=== PATIENT | female | born 1960 | race Caucasian/White ===

== ENCOUNTER 2017-10-30 14:58 | Inpatient (IN) | payer MEDICARE, OTHER ==
[~2017-10-30] VITALS: Ht 170.2 cm; Wt 79.4 kg
[2017-10-30 16:40] VITALS: BP 101/59
[2017-10-30] MEDS ORDERED: ACETAMINOPHEN325 M1 ORAL (17:25)
[2017-10-30] MEDS ORDERED: BISACODYL10 M1 RC (17:49)
[2017-10-30] MEDS ORDERED: TEMAZEPAM7.5 MG ORAL (17:49)
[2017-10-30] MEDS ORDERED: DIVALPROEX SOD500 M2 PO (17:49)
[2017-10-30] MEDS ORDERED: LIPITOR20 MG ORAL (17:49)
[2017-10-30] MEDS ORDERED: MOM30 ML ORAL (17:49)
[2017-10-30] MEDS ORDERED: SEROQUEL200 MG ORAL (17:49)
[2017-10-30] MEDS ORDERED: ASPIRIN-LOW81 MG ORAL (17:49)
[2017-10-30] MEDS ORDERED: MAALOX ADVANCE770 ML PO (17:49)
[2017-10-30] MEDS ORDERED: Milk of Magnesia 30ml Ud ORAL PRN (19:15)
[2017-10-30] MEDS ORDERED: Mylanta II UD 30ml ORAL SCH (19:15)
[2017-10-30 20:22] LABS: MEAN CORPUSCULAR HEMOGLOBIN 32.9 PG (27.0-31.0); MEAN CORPUSCULAR HGB CONC 32.2 G/DL (32.0-36.0); MEAN CORPUSCULAR VOLUME 102 FL (80-99); MEAN PLATELET VOLUME 6.1 FL (6.5-10.1); PLATELET COUNT 205 K/UL (150-450); RED BLOOD COUNT 3.83 M/UL (4.20-5.40); RED CELL DISTRIBUTION WIDTH 12.2 % (11.6-14.8); WHITE BLOOD COUNT 8.4 K/UL (4.8-10.8)
[2017-10-30 20:30] LABS: ANION GAP 4 mmol/L (5-15); CARBON DIOXIDE 30 MMOL/L (21-32); CHLORIDE 106 MMOL/L (98-107); CREATININE 0.8 MG/DL (0.55-1.30); GLOMERULAR FILTRATION RATE > 60 mL/min (>60); POTASSIUM 4.2 MMOL/L (3.5-5.1); SODIUM 139 MMOL/L (136-145)
[2017-10-30] MEDS: QUEtiapine 200mg tab ORAL SCH (20:51)
[2017-10-30] MEDS: Depakote ER 500mg tab ORAL SCH (20:51)
[2017-10-30 21:00] VITALS: BP 104/68
[2017-10-30 21:13] LABS: BAND NEUTROPHILS % (MANUAL) 0 % (0-8); BASOPHILS % (MANUAL) 1 % (0-2); EOSINOPHILS % (MANUAL) 1 % (0-3); LYMPHOCYTES % (MANUAL) 71 % (20-45); NEUTROPHILS % (MANUAL) 20 % (45-75); PLATELET ESTIMATE ADEQUATE; TOTAL CELLS COUNTED 100
[2017-10-30 21:14] LABS: MACROCYTES 2+; POLYCHROMASIA 1+
[2017-10-30 21:15] LABS: PLATELET MORPHOLOGY NORMAL; REACTIVE LYMPHOCYTES 1+
[2017-10-31 04:00] VITALS: BP 113/64
[2017-10-31] MEDS: QUEtiapine 200mg tab ORAL SCH ×4 (08:15→17:22)
[2017-10-31] MEDS: Depakote ER 500mg tab ORAL SCH ×4 (08:15→17:22)
[2017-10-31 08:16] VITALS: BP 113/66
[2017-10-31] MEDS: Aspirin EC 81mg tab ORAL SCH ×2 (08:16→08:23)
[2017-10-31 11:26] VITALS: BP 116/65
[2017-10-31 14:54] LABS: APPEARANCE,URINE SLIGHTLY CLOUDY; KETONES,URINE NEGATIVE (NEGATIVE); LEUKOCYTE ESTERASE ,URINE 3+ (NEGATIVE); NITRITE,URINE NEGATIVE (NEGATIVE); PH,URINE 6.5 (4.5-8.0); PROTEIN,URINE NEGATIVE (NEGATIVE); UROBILINOGEN,URINE 1 MG/DL (0.0-1.0)
[2017-10-31 15:02] LABS: BACTERIA,URINE FEW /HPF; SQUAMOUS EPITHELIAL CELL,UR FEW /LPF (NONE/OCC); WBC,URINE 20-30 /HPF (0 - 2)
[2017-10-31 15:33] VITALS: BP 115/71
--- NOTE | 2017-10-31 17:15 | History and Physical ---
History of Present Illness General Date patient seen: Oct 31, 2017 Reason for Hospitalization: acute psychosis Present Illness HPI 57 y/o female with a PMH of schizophrenia and CAD presents from [facility] for acute psychosis. Patient states that she feels weak and thinks that she has cancer, stroke, and a myriad of other medical conditions. Per RN, patient has been telling her bizarre stories as well. Patient is currently alert and oriented x 4. Denies chest pain, sob, f/c, n/v, abdominal pain, headaches. Denies SI/HI. Allergies: Coded Allergies: No Known Allergies (Unverified , 10/30/17) NKA VERIFIED Medication History Scheduled Aspirin (Aspirin EC), 81 MG ORAL DAILY, (Reported) Atorvastatin Calcium* (Lipitor*), 20 MG ORAL BEDTIME, (Reported) Bisacodyl (Bisacodyl), 10 MG RC PRN, (Reported) Divalproex Sodium (Divalproex Sodium Er), 500 MG PO THREE TIMES A DAY, (Reported ) Mag Hydrox/Al Hydrox/Simeth (Maalox Advanced Suspension), 200 ML PO PRN, ( Reported) Quetiapine Fumarate* (Seroquel*), 200 MG ORAL THREE TIMES A DAY, (Reported) Scheduled PRN Acetaminophen* (Acetaminophen 325MG Tablet*), 650 MG ORAL Q6H PRN for Mild Pain/ Temp > 100.5, (Reported) Magnesium Hydroxide (Milk of Magnesia), 30 ML ORAL DAILY PRN for Constipation, ( Reported) Temazepam (Temazepam*), 7.5 MG ORAL BEDTIME PRN for Insomnia, (Reported) Patient History Healthcare decision maker N Resuscitation status Full Code Advanced Directive on File Yes Review of Systems All Other Systems: negative except mentioned in HPI Physical Exam General Appearance: no apparent distress, alert, confused HEENT: normocephalic, atraumatic Neck: non-tender, normal alignment, supple Respiratory/Chest: chest wall non-tender, lungs clear, normal breath sounds Cardiovascular/Chest: normal rate, regular rhythm Abdomen: normal bowel sounds, non tender, soft Skin Exam: normal pigmentation, warm/dry 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 II-XII grossly normal, no motor/sensory deficits Last 24 Hour Vital Signs Date Time Temp Pulse Resp B/P (MAP) Pulse Ox O2 Delivery O2 Flow Rate FiO2 10/31/17 15:33 98.2 70 20 115/71 96 10/31/17 11:26 98.2 85 20 116/65 97 10/31/17 08:16 97.8 81 20 113/66 97 10/31/17 04:00 97.5 76 21 113/64 93 10/30/17 21:00 98.0 71 20 104/68 95 Room Air Intake and Output 10/30/17 10/31/17 19:00 07:00 # Voids 1 Laboratory Tests Test 10/30/17 19:45 10/31/17 11:15 White Blood Count 8.4 K/UL (4.8-10.8) Red Blood Count 3.83 M/UL (4.20-5.40) L Hemoglobin 12.6 G/DL (12.0-16.0) Hematocrit 39.1 % (37.0-47.0) Mean Corpuscular Volume 102 FL (80-99) H Mean Corpuscular Hemoglobin 32.9 PG (27.0-31.0) H Mean Corpuscular Hemoglobin Concent 32.2 G/DL (32.0-36.0) Red Cell Distribution Width 12.2 % (11.6-14.8) Platelet Count 205 K/UL (150-450) Mean Platelet Volume 6.1 FL (6.5-10.1) L Neutrophils (%) (Auto) % (45.0-75.0) Lymphocytes (%) (Auto) % (20.0-45.0) Monocytes (%) (Auto) % (1.0-10.0) Eosinophils (%) (Auto) % (0.0-3.0) Basophils (%) (Auto) % (0.0-2.0) Differential Total Cells Counted 100 Neutrophils % (Manual) 20 % (45-75) L Lymphocytes % (Manual) 71 % (20-45) H Monocytes % (Manual) 7 % (1-10) Eosinophils % (Manual) 1 % (0-3) Basophils % (Manual) 1 % (0-2) Band Neutrophils 0 % (0-8) Reactive Lymphocytes 1+ Platelet Estimate Adequate Platelet Morphology Normal Polychromasia 1+ Macrocytosis 2+ Sodium Level 139 MMOL/L (136-145) Potassium Level 4.2 MMOL/L (3.5-5.1) Chloride Level 106 MMOL/L (98-107) Carbon Dioxide Level 30 MMOL/L (21-32) Anion Gap 4 mmol/L (5-15) L Blood Urea Nitrogen 24 mg/dL (7-18) H Creatinine 0.8 MG/DL (0.55-1.30) Estimat Glomerular Filtration Rate > 60 mL/min (>60) Glucose Level 92 MG/DL (74-106) Calcium Level 9.0 MG/DL (8.5-10.1) Urine Color Yellow Urine Appearance Slightly cloudy Urine pH 6.5 (4.5-8.0) Urine Specific [place] 1.015 (1.005-1.035) Urine Protein Negative (NEGATIVE) Urine Glucose (UA) Negative (NEGATIVE) Urine Ketones Negative (NEGATIVE) Urine Occult Blood 1+ (NEGATIVE) H Urine Nitrite Negative (NEGATIVE) Urine Bilirubin Negative (NEGATIVE) Urine Urobilinogen 1 MG/DL (0.0-1.0) H Urine Leukocyte Esterase 3+ (NEGATIVE) H Urine RBC 2-4 /HPF (0 - 2) H Urine WBC 20-30 /HPF (0 - 2) H Urine Squamous Epithelial Cells Few /LPF (NONE/OCC) Urine Bacteria Few /HPF (NONE) Height (Feet): 5 Height (Inches): 7.00 Weight (Pounds): 175 Medications Current Medications Medications (Trade) Dose Ordered Sig/Pierre Route PRN Reason Start Time Stop Time Status Last Admin Dose Admin Acetaminophen (Tylenol) 650 mg Q6H PRN ORAL Mild Pain/Temp > 100.5 10/30/17 19:15 11/29/17 19:14 Al Hydroxide/Mg Hydroxide (Mylanta) 30 ml BID PRN ORAL INDIGESTION 10/30/17 19:45 11/29/17 19:44 Aspirin (Ecotrin) 81 mg DAILY ORAL 10/31/17 09:00 11/30/17 08:59 Atorvastatin Calcium (Lipitor) 20 mg BEDTIME ORAL 10/30/17 21:00 11/29/17 20:59 10/30/17 20:53 Bisacodyl (Dulcolax) 10 mg PRN PRN RECTAL CONSTIPATION 10/30/17 19:15 11/29/17 19:14 Divalproex Sodium (Depakote ER) 500 mg THREE TIMES A DAY ORAL 10/30/17 19:45 11/29/17 19:44 10/31/17 13:34 Magnesium Hydroxide (Mom) 30 ml DAILY PRN ORAL Constipation 10/30/17 19:15 11/29/17 19:14 Quetiapine Fumarate (SEROquel) 200 mg THREE TIMES A DAY ORAL 10/30/17 19:45 11/29/17 19:44 10/30/17 20:51 Temazepam (Restoril) 7.5 mg BEDTIME PRN ORAL Insomnia 10/30/17 19:15 11/06/17 19:14 Assessment/Plan Problem List: (1) Psychosis ICD Codes: F29 - Unspecified psychosis not due to a substance or known physiological condition SNOMED: 06087922 (2) Generalized weakness ICD Codes: R53.1 - Weakness SNOMED: 90369579 (3) HLD (hyperlipidemia) ICD Codes: E78.5 - Hyperlipidemia, unspecified SNOMED: 50368289 Status: stable Assessment/Plan - Admit to obs - Resume home meds - further lab workup ordered to r/o metabolic etiology: vitamin B12, folate, RPR , UA, CBC, CMP, TSH, ammonia, vitamin D, urine tox - psychiatry consulted d/w psychiatrist, patient, and RN Total patient care and coordination: 55 minutes Dispo plan: back Rausch Kinga Willson N.P. Oct 31, 2017 17:15
[2017-10-31] MEDS: LORazepam 1mg tab ORAL PRN (18:11)
[2017-11-01 04:00] VITALS: BP 94/54
[2017-11-01 08:00] VITALS: BP 109/58
[2017-11-01] MEDS: Aspirin EC 81mg tab ORAL SCH (08:41)
[2017-11-01] MEDS: QUEtiapine 200mg tab ORAL SCH ×2 (08:41→13:00)
[2017-11-01] MEDS: Depakote ER 500mg tab ORAL SCH ×2 (08:41→13:42)
[2017-11-01 12:00] VITALS: BP 106/61
[2017-11-01] MEDS: LORazepam 1mg tab ORAL PRN (12:12)
--- NOTE | 2017-11-01 15:56 | General Progress Note ---
Assessment/Plan Problem List: (1) Schizophrenia ICD Codes: F20.9 - Schizophrenia, unspecified SNOMED: 62551246 (2) Acute psychosis ICD Codes: F23 - Brief psychotic disorder SNOMED: 28304581 (3) Generalized weakness ICD Codes: R53.1 - Weakness SNOMED: 47355842 (4) HLD (hyperlipidemia) ICD Codes: E78.5 - Hyperlipidemia, unspecified SNOMED: 64729779 Status: stable Assessment/Plan - Psych consulted, appreciate rec's - Plan is for pt to stay in house today for further psych treatment--depakote, fluphenazine ordered per psych - Resume home meds - further lab workup ordered to r/o metabolic etiology: vitamin B12, folate, RPR , UA, CBC, CMP, TSH, ammonia, vitamin D --appears pt is refusing further blood draws - cont home meds FULL CODE d/w psychiatrist, patient, and RN regarding mgmt and dispo Dispo plan: back [facility] in 1-2 days once cleared by psych Subjective Date patient seen: Nov 01, 2017 Time patient seen: 15:55 ROS Limited/Unobtainable: No Constitutional: Reports: weakness HEENT: Reports: no symptoms Cardiovascular: Reports: no symptoms Respiratory: Reports: no symptoms Gastrointestinal/Abdominal: Reports: no symptoms Genitourinary: Reports: no symptoms Neurologic/Psychiatric: Reports: no symptoms, weakness Endocrine: Reports: no symptoms Hematologic/Lymphatic: Reports: no symptoms Allergies: Coded Allergies: No Known Allergies (Unverified , 10/30/17) NKA VERIFIED All Systems: reviewed and negative except above Subjective No acute o/n events Pt cont to have delusions and hallucinations. Seen by psych who recommends pt stay in house for further psych treatment Pt concerned abt possible cancer Objective Last 24 Hour Vital Signs Date Time Temp Pulse Resp B/P (MAP) Pulse Ox O2 Delivery O2 Flow Rate FiO2 11/01/17 12:00 97.5 82 20 106/61 96 11/01/17 08:00 97.7 74 20 109/58 97 11/01/17 04:00 97.5 72 20 94/54 98 Room Air 11/01/17 00:00 Room Air 10/31/17 20:00 Room Air Intake and Output 10/31/17 11/01/17 19:00 07:00 Intake Total 1080 ml Balance 1080 ml Intake Oral 1080 ml # Voids 3 1 Height (Feet): 5 Height (Inches): 7.00 Weight (Pounds): 175 Objective General: alert, cooperative, no distress, appears stated age Head: normocephalic, without obvious abnormality, atraumatic Eyes: conjunctivae/corneas clear. PERRL, EOM's intact Throat: lips, mucosa, and tongue normal. MMM Neck: supple, symmetrical, trachea midline, and no JVD Lungs: clear to auscultation bilaterally Heart: regular rate and rhythm, S1, S2 normal, no murmur, click, rub or gallop Abdomen: soft, non-tender, non-distended, bowel sounds normal; no masses or organomegaly Extremities: extremities normal, atraumatic, no cyanosis or edema Pulses: 2+ and symmetric Skin: skin color, texture, turgor normal; no rashes or lesions Neurologic: grossly normal, no focal deficits Psych: +delusions, +hallucinations, +blunted affect Chan Garcia M.D. Nov 01, 2017 15:56
[2017-11-01 16:00] VITALS: BP 98/59
[2017-11-01] MEDS ORDERED: fluPHENAZine Decanoate 25mg Inj IM ONE (17:00)
[2017-11-01 20:00] VITALS: BP 93/53
[2017-11-01] MEDS ORDERED: Depakote ER 500mg tab ORAL SCH (21:00)
--- NOTE | 2017-11-01 22:10 | Consultation ---
History of Present Illness General Date patient seen: Oct 31, 2017 Present Illness HPI 57 y/o female with a PMH of schizophrenia and CAD presents from [facility] for acute psychosis. The pt was yelling, delusional and responding. the pt is a poor historian and is dysarthric. poor insight. Allergies: Coded Allergies: No Known Allergies (Unverified , 10/30/17) NKA VERIFIED Medication History Scheduled Aspirin (Aspirin EC), 81 MG ORAL DAILY, (Reported) Atorvastatin Calcium* (Lipitor*), 20 MG ORAL BEDTIME, (Reported) Bisacodyl (Bisacodyl), 10 MG RC PRN, (Reported) Divalproex Sodium (Divalproex Sodium Er), 500 MG PO THREE TIMES A DAY, (Reported ) Mag Hydrox/Al Hydrox/Simeth (Maalox Advanced Suspension), 200 ML PO PRN, ( Reported) Quetiapine Fumarate* (Seroquel*), 200 MG ORAL THREE TIMES A DAY, (Reported) Scheduled PRN Acetaminophen* (Acetaminophen 325MG Tablet*), 650 MG ORAL Q6H PRN for Mild Pain/ Temp > 100.5, (Reported) Magnesium Hydroxide (Milk of Magnesia), 30 ML ORAL DAILY PRN for Constipation, ( Reported) Temazepam (Temazepam*), 7.5 MG ORAL BEDTIME PRN for Insomnia, (Reported) Patient History Limited by: medical condition History Provided By: Patient, Medical Record, PMD Healthcare decision maker N Resuscitation status Full Code Advanced Directive on File Yes Past Medical/Surgical History Past Medical/Surgical History: (1) PSYCHOSI (2) Generalized weakness (3) Psychosis (4) HLD (hyperlipidemia) Review of Systems Psychiatric: Reports: anxiety, depressed feelings, emotional problems, hallucinations Physical Exam General Appearance: no apparent distress, alert, confused, agitated Neurologic: alert, responsive, disoriented, depressed affect Last 24 Hour Vital Signs Date Time Temp Pulse Resp B/P (MAP) Pulse Ox O2 Delivery O2 Flow Rate FiO2 11/01/17 20:00 97.6 74 19 93/53 95 Room Air 11/01/17 16:00 98.2 80 20 98/59 95 11/01/17 12:00 97.5 82 20 106/61 96 11/01/17 08:00 97.7 74 20 109/58 97 11/01/17 04:00 97.5 72 20 94/54 98 Room Air 11/01/17 00:00 Room Air Intake and Output 10/31/17 11/01/17 19:00 07:00 Intake Total 1080 ml Balance 1080 ml Intake Oral 1080 ml # Voids 3 1 Laboratory Tests Test 11/01/17 17:35 Valproic Acid (Depakene) Level 63 MCG/ML (50-100) Height (Feet): 5 Height (Inches): 7.00 Weight (Pounds): 175 Medications Current Medications Medications (Trade) Dose Ordered Sig/Pierre Route PRN Reason Start Time Stop Time Status Last Admin Dose Admin Acetaminophen (Tylenol) 650 mg Q6H PRN ORAL Mild Pain/Temp > 100.5 10/30/17 19:15 11/29/17 19:14 Al Hydroxide/Mg Hydroxide (Mylanta) 30 ml BID PRN ORAL INDIGESTION 10/30/17 19:45 11/29/17 19:44 Aspirin (Ecotrin) 81 mg DAILY ORAL 10/31/17 09:00 11/30/17 08:59 11/01/17 08:41 Atorvastatin Calcium (Lipitor) 20 mg BEDTIME ORAL 10/30/17 21:00 11/29/17 20:59 11/01/17 21:13 Bisacodyl (Dulcolax) 10 mg PRN PRN RECTAL CONSTIPATION 10/30/17 19:15 11/29/17 19:14 Divalproex Sodium (Depakote ER) 2,000 mg BEDTIME ORAL 11/01/17 21:00 11/29/17 19:44 11/01/17 21:13 Lorazepam (Ativan) 1 mg Q6H PRN ORAL For Anxiety 10/31/17 17:45 11/07/17 17:44 11/01/17 12:12 Magnesium Hydroxide (Mom) 30 ml DAILY PRN ORAL Constipation 10/30/17 19:15 11/29/17 19:14 Risperidone (RisperDAL) 2 mg BEDTIME ORAL 11/01/17 21:00 12/01/17 20:59 11/01/17 21:13 Temazepam (Restoril) 7.5 mg BEDTIME PRN ORAL Insomnia 10/30/17 19:15 11/06/17 19:14 11/01/17 21:13 Assessment/Plan Status: stable Assessment/Plan schizophrenia -risperdal 2mg qhs -fluphenazine dec 50mg -depakote er Bo Acevedo M.D. Nov 01, 2017 22:10
[2017-11-02 04:00] VITALS: BP 99/46
[2017-11-02] MEDS: Aspirin EC 81mg tab ORAL SCH (08:04)
[2017-11-02 12:00] VITALS: BP 146/84
--- NOTE | 2017-11-02 15:19 | Discharge Summary ---
Discharge Summary Hospital Course Date of Admission Oct 30, 2017 at 15:34 Date of Discharge 10/13/17 Admitting Diagnosis acute psychosis Reason for Hospitalization: acute psychosis HPI 57y/o female with a PMH of schizophrenia and CAD presents from [facility] for acute psychosis. Patient states that she feels weak and thinks that she has cancer, stroke, and a myriad of other medical conditions. Per RN, patient has been telling her bizarre stories as well. Patient is currently alert and oriented x 4. Denies chest pain, sob, f/c, n/v, abdominal pain, headaches. Denies SI/HI. Consultations Psychiatry Hospital Course Pt was admitted and worked up for reversible causes of psychosis which was unremarkable. Pt was seen by psychiatry and given depakote, fluphenazine while in-house. Pt was ultimately discharged back to SNF once cleared by psych. Discharge physical exam: General: alert, cooperative, no distress, appears stated age Head: normocephalic, without obvious abnormality, atraumatic Eyes: conjunctivae/corneas clear. PERRL, EOM's intact Throat: lips, mucosa, and tongue normal. MMM Neck: supple, symmetrical, trachea midline, and no JVD Lungs: clear to auscultation bilaterally Heart: regular rate and rhythm, S1, S2 normal, no murmur, click, rub or gallop Abdomen: soft, non-tender, non-distended, bowel sounds normal; no masses or organomegaly Extremities: extremities normal, atraumatic, no cyanosis or edema Pulses: 2+ and symmetric Skin: skin color, texture, turgor normal; no rashes or lesions Neurologic: grossly normal, no focal deficits Discharge diagnoses: (1) Schizophrenia ICD Codes: F20.9 - Schizophrenia, unspecified SNOMED: 74293746 (2) Acute psychosis ICD Codes: F23 - Brief psychotic disorder SNOMED: 46436094 (3) Generalized weakness ICD Codes: R53.1 - Weakness SNOMED: 00479454 (4) HLD (hyperlipidemia) ICD Codes: E78.5 - Hyperlipidemia, unspecified SNOMED: 63177677 Discharge Medications Continued Medications: Acetaminophen* (Acetaminophen 325MG Tablet*) 325 Mg Tablet 650 MG ORAL Q6H PRN for Mild Pain/Temp > 100.5, TAB Aspirin (Aspirin EC) 81 Mg Tablet. 81 MG ORAL DAILY, TAB Atorvastatin Calcium* (Lipitor*) 20 Mg Tablet 20 MG ORAL BEDTIME, TAB Bisacodyl (Bisacodyl) 10 Mg Supp.rect 10 MG RC PRN, SUPP Divalproex Sodium (Divalproex Sodium Er) 500 Mg Tab.er.24h 500 MG PO THREE TIMES A DAY, TAB Mag Hydrox/Al Hydrox/Simeth (Maalox Advanced Suspension) 355 Ml Oral.susp 200 ML PO PRN for To Patient Comfort, ML Magnesium Hydroxide (Milk of Magnesia) 400 Mg/5 Ml Oral.susp 30 ML ORAL DAILY PRN for Constipation, ML Quetiapine Fumarate* (Seroquel*) 200 Mg Tablet 200 MG ORAL THREE TIMES A DAY, TAB Temazepam (Temazepam*) 7.5 Mg Capsule 7.5 MG ORAL BEDTIME PRN for Insomnia, #30 CAP 0 Refills Discharge Condition Upon Discharge: stable Discharge Disposition Patient was discharged to SNF/Subacute Facility(03) Discharge Diagnoses: Chan Garcia M.D. Nov 02, 2017 15:19
--- NOTE | 2017-11-02 17:31 | Progress Note ---
DATE: 11/02/2017 SUBJECTIVE: The patient continues to be disorganized, however, calm down, less agitated, and delusional. The patient is stabilized and is not meeting the criteria for 5150 or grave disability. The patient will be discharged to a [place] [facility] with follow up with a psychiatrist. The patient is not an imminent danger to self or others. ASSESSMENT: Schizophrenia. PLAN: 1. We will continue current medication. 2. Provide the patient with supportive therapy and reality orientation. Bo Acevedo M.D. DR: JOSÉ LUIS JOB#: [id number] CC:
--- NOTE | 2017-11-02 17:31 | Progress Note ---
DATE: 11/01/2017 SUBJECTIVE: The patient is agitated, delusional, and responsive to stimuli. Not able to be engaged during the evaluation. She agreed to receive the Prolixin Decanoate. The patient is illogical. MENTAL STATUS EXAMINATION: The patient is alert and oriented times self, place, and situation the patient is. Mood is neutral to anxious. Affect is flat. Congruent with mood. Thought process is concrete. Thought content, no suicidal or homicidal ideations. ASSESSMENT: 1. Agitation. 2. Schizophrenia. PLAN: 1. We will continue current medication. 2. Provide the patient with supportive therapy and reality orientation. Bo Acevedo M.D. DR: JOSÉ LUIS JOB#: [id number] CC:
--- NOTE | 2017-11-09 08:07 | Discharge Summary ---
Discharge Summary Hospital Course Date of Admission Oct 30, 2017 at 15:34 Date of Discharge Nov 02, 2017 at 16:30 Admitting Diagnosis HPI Riat Pleitez is a 57 year old female who was admitted on Oct 30, 2017 at 15:34 for General Weakness Hospital Course 57 y/o female with a PMH of schizophrenia and CAD presents from [facility] for acute psychosis. Patient states that she feels weak and thinks that she has cancer, stroke, and a myriad of other medical conditions. Per RN, patient has been telling her bizarre stories as well. Patient is currently alert and oriented x 4. Denies chest pain, sob, f/c, n/v, abdominal pain, headaches. Denies SI/HI. She was seen by Dr Acevedo. The pt was yelling, delusional and responding. She is a poor historian and is dysarthric. Has poor insight into her medical condition. She was diagnosed with schizophrenia and was given risperdal 2mg qhs, fluphenazine dec 50mg and depakote er Further lab workup ordered to r/o metabolic etiology: vitamin B12, folate, RPR, UA, CBC, CMP, TSH, ammonia, vitamin D --- pt is refusing further blood draws she was discharged back to SNF Assessment/Plan Problem List: (1) Schizophrenia ICD Codes: F20.9 - Schizophrenia, unspecified SNOMED: 46165990 (2) Acute psychosis ICD Codes: F23 - Brief psychotic disorder SNOMED: 01220281 (3) Generalized weakness ICD Codes: R53.1 - Weakness SNOMED: 51364666 (4) HLD (hyperlipidemia) ICD Codes: E78.5 - Hyperlipidemia, unspecified SNOMED: 71957698 Status: stable I have been assigned to complete a Dc summary on this account, I was not involved with the patient management.--Alicia Delarosa NP Discharge Discharge Disposition Patient was discharged to SNF/Subacute Facility(03) Discharge Diagnoses: Medina Delarosa NP Nov 09, 2017 08:07
== END 2017-11-02 16:30 | DRG 885 ==
LOC: 4E 15:34
DX: F23 Brief psychotic disorder (principal); E78.5 Hyperlipidemia, unspecified; R53.1 Weakness; R45.1 Restlessness and agitation
CPT/HCPCS: 36415; 80048; 80164; 81001; 85007; 85025; 87040; 87086; 87181